=== PATIENT | female | born 1950 | race Caucasian/White ===

== ENCOUNTER 2017-11-28 16:52 | Emergency (ER) | payer MEDICARE, BC ==
[~2017-11-28] VITALS: Ht 157.5 cm; Wt 60.8 kg
--- NOTE | 2017-11-28 17:49 | NUR ---
PT REFUSED CHEST XRAY, DR URIBE MADE AWARE.
[2017-11-28] MEDS ORDERED: LISI2.5T2 PO (18:02)
[2017-11-28 18:12] LABS: BASOPHILS % (AUTO) 0.5 % (0.0-2.0); EOSINOPHILS % (AUTO) 0.4 % (0.0-7.0); HEMATOCRIT 42.7 % (31.2-41.9); HEMOGLOBIN 14.3 g/dL (10.9-14.3); LYMPHOCYTES # (AUTO) 1.6 K/uL (20.0-40.0); LYMPHOCYTES % (AUTO) 20.3 % (20.5-51.5); MEAN CORPUSCULAR HEMOGLOBIN 30.8 uug (24.7-32.8); MEAN CORPUSCULAR HGB CONC 34 g/dL (32.3-35.6); MEAN CORPUSCULAR VOLUME 91.9 fL (75.5-95.3); MONOCYTES # (AUTO) 0.4 K/uL (2.0-10.0); MONOCYTES % (AUTO) 4.9 % (0.0-11.0); NEUTROPHILS # (AUTO) 5.7 K/uL (1.8-8.9); NEUTROPHILS % (AUTO) 73.9 % (38.5-71.5); PLATELET COUNT (AUTO) 205 K/uL (179-408); RED BLOOD CELL COUNT(AUTO) 4.65 MIL/uL (3.63-4.92); WHITE BLOOD COUNT (AUTO) 7.7 K/uL (3.8-11.8)
[2017-11-28 18:18] LABS: CREATININE 0.8 mg/dL (0.6-1.3)
--- NOTE | 2017-11-28 19:04 | NUR ---
[facility] REP[ORT TO NAOMI MARAVILLA
--- NOTE | 2017-11-28 19:15 | NUR ---
Patient discharged to home in stable conditon. Written and verbal after care instructions given. Patient verbalizes understanding of instructions. Patient reported less feelings of dizziness upon discharge. Patient able to ambulate unassisted with steady gait. Patient left with all personal belongings.
[2017-11-28 19:17] VITALS: BP 148/94
== END 2017-11-28 19:15 | disposition home or self-care (01) ==
LOC: ER 16:55
DX: R42 Dizziness and giddiness (principal); I10 Essential (primary) hypertension; Z90.710 Acquired absence of both cervix and uterus; Z90.49 Acquired absence of other specified parts of digestive tract; Z79.899 Other long term (current) drug therapy
CPT/HCPCS: 36415; 70030-TC; 70450; 85025; 93005; A4663

== ENCOUNTER 2019-01-11 14:23 | Emergency (ER) | payer MEDICARE, BC ==
[~2019-01-11] VITALS: Ht 157.5 cm; Wt 61.7 kg
[~2019-01-11 14:23] MED LIST: LISI2.5T2 PO
--- NOTE | 2019-01-11 14:47 | NUR ---
PT IS IN ROOM #1B. DR REAL EVALUATED THE PT.
--- NOTE | 2019-01-11 15:31 | NUR ---
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 Patient discharged to home in stable conditon & brisk steady gait. Written and verbal after care instructions given to patient. Patient verbalizes understanding & compliance of instructions.
== END 2019-01-11 15:37 | disposition home or self-care (01) ==
LOC: ER 14:23
DX: S00.83XA Contusion of other part of head, initial encounter (principal); S20.219A Contusion of unspecified front wall of thorax, initial encounter; I10 Essential (primary) hypertension; Z90.49 Acquired absence of other specified parts of digestive tract; Z90.710 Acquired absence of both cervix and uterus; Z79.899 Other long term (current) drug therapy; V43.52XA Car driver injured in collision with other type car in traffic accident, initial encounter; Y93.89 Activity, other specified; Y92.89 Other specified places as the place of occurrence of the external cause; Y99.8 Other external cause status
CPT/HCPCS: 71045; A4663

== ENCOUNTER 2022-05-10 11:43 | Inpatient (IN) | payer MEDICARE, BC ==
[~2022-05-10] VITALS: Ht 157.5 cm; Wt 57.6 kg
[~2022-05-10 11:43] MED LIST changes: +LISI2.5T14 PO; -LISI2.5T2 PO
[2022-05-10 12:39] LABS: HEMATOCRIT 42.3 % (31.2-41.9); MEAN CORPUSCULAR HEMOGLOBIN 31.5 uug (24.7-32.8); MEAN CORPUSCULAR VOLUME 92.1 fL (75.5-95.3); PLATELET COUNT (AUTO) 221 K/uL (179-408)
--- NOTE | 2022-05-10 12:51 | NUR ---
Pt refused IV at this time.
[2022-05-10 12:55] LABS: CARBON DIOXIDE 26 mmol/L (21-32); CHLORIDE 106 mmol/L (98-107); CREATININE 0.8 mg/dL (0.6-1.3); GLUCOSE 106 mg/dL (74-106); POTASSIUM 4.3 mmol/L (3.5-5.1); UREA NITROGEN, BLOOD 19 mg/dL (7-18)
[2022-05-10] MEDS ORDERED: IV NORMAL SALINE 500 ML BAG IV ONE (14:45)
[2022-05-10] MEDS ORDERED: MORPHINE SULFATE 2 MG/1 ML DISP.SYRIN IV PRN (16:30)
[2022-05-10] MEDS: IV NS 1000 ML 1,000 ML IV SCH ×2 (16:30→22:38)
[2022-05-10] MEDS ORDERED: hydrALAZINE HCL 20 MG/1 ML VIAL IV PRN (16:30)
[2022-05-10] MEDS ORDERED: ONDANSETRON 4 MG/2 ML VIAL IV PRN (16:30)
[2022-05-10] MEDS ORDERED: ACETAMINOPHEN 325 MG TABLET PO PRN (16:30)
--- NOTE | 2022-05-10 16:38 | NUR ---
ORTHOSTATIC VS --- Flat: 76hr 130/84 SITTINhr 128/84 STANDINhr 124/84
--- NOTE | 2022-05-10 17:06 | NUR ---
Pt refused Head CT
[2022-05-10] MEDS ORDERED: ESOM20CA PO (17:44)
[2022-05-10] MEDS ORDERED: AMLO5TAB4 PO (17:44)
[2022-05-10] MEDS ORDERED: CARV3.12 PO (17:44)
[2022-05-10] MEDS ORDERED: CARV6.25 PO (17:44)
[2022-05-10] MEDS: HEPARIN SODIUM,PORCINE 5,000 UNITS/ML VIAL SQ SCH (17:50)
--- NOTE | 2022-05-10 18:37 | NUR ---
Pt. has saline lock but refused IV NS order.
--- NOTE | 2022-05-10 20:53 | NUR ---
report given to Bernadette MARAVILLA pt will go to room 319.
--- NOTE | 2022-05-10 22:19 | NUR ---
pt transported to room 319 via w/c by household cook. pt transported with all belongings.
[2022-05-10] MEDS ORDERED: CARVEDILOL 3.125 MG TABLET PO SCH (22:25)
[2022-05-10 22:33] VITALS: BP 175/88
[2022-05-10] MEDS: AMLODIPINE 5 MG TABLET PO SCH (22:36)
--- NOTE | 2022-05-10 23:59 | NUR ---
Patient admission from ER per wheel chair with diagnosis Dizziness and history of HTN, DM, Arthritis, Appendectomy, Hysterectomy. AAOX4, BRP, skin intact, room air , sinus rhythm on the telemetry. call light with in easy reach, will continue to monitor.
[2022-05-11 05:30] VITALS: BP 155/80
[2022-05-11] MEDS: PANTOPRAZOLE SODIUM 40 MG TABLET.DR PO SCH ×2 (06:16→06:30)
--- NOTE | 2022-05-11 08:00 | NUR ---
sitting at bedside chair, states wants her coreg now, states unable to sleep last night due to bed, denies of pain, no dizziness, tele SR 85, up and about in the room, informed Dr Vaughn re coreg- order given, safety measures in place, call light within reach
[2022-05-11 08:34] VITALS: BP 134/86
[2022-05-11] MEDS: AMLODIPINE 5 MG TABLET PO SCH (08:34)
[2022-05-11] MEDS: HEPARIN SODIUM,PORCINE 5,000 UNITS/ML VIAL SQ SCH (08:34)
[2022-05-11] MEDS ORDERED: CARVEDILOL 6.25 MG TABLET PO SCH (09:00)
[2022-05-11] MEDS ORDERED: METO-356 PO (09:23)
--- NOTE | 2022-05-11 10:00 | NUR ---
refused all labs draw this morning
--- NOTE | 2022-05-11 10:15 | NUR ---
refused orthostatic BP ans also ivf ordered last night- hospitalist informed
--- NOTE | 2022-05-11 10:30 | NUR ---
seen by hospitalist Tyrell Smith
[2022-05-11 10:33] LABS: *BILIRUBIN,URIN NEGATIVE (NEGATIVE); *BLOOD, URINE NEGATIVE (NEGATIVE); *CLARITY,URINE CLEAR (CLEAR); *COLOR,URINE YELLOW (YELLOW); *KETONES,URINE NEGATIVE (NEGATIVE); *UROBILINOGEN,URINE 0.2 E.U./dl (NORMAL); LEUKOCYTE ESTERASE ,URINE NEGATIVE (NEGATIVE); NITRITE, URINE NEGATIVE (NEGATIVE); UGLUCOSE NEGATIVE (NEGATIVE)
--- NOTE | 2022-05-11 11:00 | NUR ---
UA results came back - relayed to hospitalist- for d/c
--- NOTE | 2022-05-11 11:45 | NUR ---
discharge instructions given, verbalized understanding, tele removed, saline removed- no swelling/redness noted on site, escorted to car in stable condition with all her belongings, ID bracelet removed.
== END 2022-05-11 11:45 | disposition home or self-care (01) | DRG 310 ==
LOC: ER 11:43 → TELE3 21:52
PROVIDERS: ADMIT Internal Medicine; ATTEND Registered Nurse
DX: I49.1 Atrial premature depolarization (principal); R42 Dizziness and giddiness; K21.9 Gastro-esophageal reflux disease without esophagitis; E11.9 Type 2 diabetes mellitus without complications; D75.1 Secondary polycythemia; Z91.19 Patient's noncompliance with other medical treatment and regimen; I10 Essential (primary) hypertension; E86.0 Dehydration; T44.7X5A Adverse effect of beta-adrenoreceptor antagonists, initial encounter; Y92.009 Unspecified place in unspecified non-institutional (private) residence as the place of occurrence of the external cause
CPT/HCPCS: 36415; 71045; 83735; 84484; 85025; 93005; 93307; A4663; G0378; J0360; J1644